=== PATIENT | male | born 1960 | race Caucasian/White ===

== ENCOUNTER 2018-07-24 15:15 | Emergency (ER) | payer OTHER ==
[~2018-07-24] VITALS: Ht 177.8 cm; Wt 111.1 kg
[2018-07-24] MEDS ORDERED: DOXYCYCLINE 10100 MG PO (16:12)
[2018-07-24 16:36] VITALS: BP 161/86
[2018-07-24] MEDS ORDERED: NORCO 5-325 TA1 EACH PO (16:37)
[2018-07-24] MEDS ORDERED: SENNA-DOCUSATE1 EAC1 PO (16:37)
== END 2018-07-24 16:50 | disposition home or self-care (01) ==
LOC: ER 15:15
DX: L97.529 Non-pressure chronic ulcer of other part of left foot with unspecified severity (principal); Z88.0 Allergy status to penicillin

== ENCOUNTER → 2018-08-29 | Outpatient (CLI) | payer OTHER ==
[~2018-08-29] MED LIST: DOXYCYCLINE 10100 MG PO; NORCO 5-325 TA1 EACH PO; SENNA-DOCUSATE1 EAC1 PO
== END ==
LOC: HYPER 08-15 06:53
DX: R21 Rash and other nonspecific skin eruption (principal); L30.9 Dermatitis, unspecified; I87.2 Venous insufficiency (chronic) (peripheral); F17.200 Nicotine dependence, unspecified, uncomplicated; F12.20 Cannabis dependence, uncomplicated; Z86.718 Personal history of other venous thrombosis and embolism; Z79.01 Long term (current) use of anticoagulants; Z79.84 Long term (current) use of oral hypoglycemic drugs